=== PATIENT | female | born 2000 | race Caucasian/White ===

== ENCOUNTER 2023-12-06 10:35 | Emergency (ER) | payer BC, SELFPAY ==
[2023-12-06 10:40] VITALS: BP 141/78; PULSE 83; RESP 18; TEMP 36.9; O2SAT 98
--- NOTE | 2023-12-06 11:00 | DI.CT_ITS ---
Exam(s) CT HEAD WO EXAM: CT HEAD WO CLINICAL HISTORY: Closed head injury, Headache. TECHNIQUE: Imaging Protocol: Axial computed tomography images with coronal and sagittal reformatted images were created and reviewed COMPARISON: No exams were available for comparison FINDINGS: Ventricles and Extra axial spaces: Normal in size and morphology for the patient's age. Hemorrhage: None. Cerebral parenchyma: Normal. Midline shift: None. Brainstem/Cerebellum: Normal. Calvarium: Normal. Visualized Paranasal sinuses/Mastoids: Clear. Soft Tissues: Unremarkable. IMPRESSION: No acute intracranial process. RADIATION DOSE DELIVERED: 753.32mGy.cm Total DLP DATA REPOSITORY: All CT scans at this facility are submitted to the National Radiology Data Registry (NRDR) Dose Index Registry (DIR) with the [employer] ([employer]). RADIATION OPTIMIZATION: All CT scans at this facility use at least one of these dose optimization te chniques: automated exposure control; mA and/or kV adjustment per patient size (includes targeted exa ms where dose is matched to clinical indication); or iterative reconstruction.
--- NOTE | 2023-12-06 11:05 | W.ED.GENAD ---
Discharge Plan Disposition Patient Disposition: Home Condition: Stable Discharge Details Clinical Impression: Serum lithium level below therapeutic range, Closed head injury with loss of consciousness of unknown duration Primary Care Provider: Unknown,Unknown ED Provider: Alize Bridges Home Meds and New Rx's Prescriptions: Continued norgestimate-ethinyl estradiol [Sprintec (28)] 0.25-35 mg-mcg tablet 1 tab PO DAILY lamotrigine 25 mg tablet 25 mg PO BID Patient Comments: TAKE 1 TABLET BY MOUTH ONCE DAILY FOR 14 DAYS AND THEN TAKE 1 TABLET TWICE DAILY (28 DAY SUPPLY) lithium carbonate 300 mg capsule 300 mg PO DAILY Patient Comments: TAKE 1 CAPSULE BY MOUTH ONCE DAILY WITH THE LITHIUM 150 MG CAPSULE FOR TOTAL DOSE DOSE OF 450 MG FOR 14 DAYS lithium carbonate 150 mg capsule 150 mg PO DAILY Patient Comments: TAKE 1 CAPSULE BY MOUTH ONCE DAILY WITH THE LITHIUM 300 MG FOR A TOTAL OF 450 MG FOR 14 DAYS Discharge Instructions Instructions: Head Injury (ED) Additional Instructions: At this time you have declined mental health evaluation with [facility] services. Your lithium level is low today at 0.3. Please discuss this with your primary prescriber. Follow up with primary care provider in 3-5 days. Return to ED sooner if any worsening or concerns. Please return to the ER for any suicidal thoughts, any recurrent bipolar episodes or concerns. Referrals: [facility] [Provider Group] - Return if symptoms worsen (Call if suicidal thoughts or emergent concerns) Discharge Data Discharge Date/Time-TO BE ENTERED AT DEPARTURE: 12/06/23 13:23 HPI General Mode of arrival: ambulatory. Date/Time Provider Initiated Documentation: 12/06/23 10:47. Limitations to Documentation: no limitations. Information obtained by: patient, RN notes reviewed and old records reviewed. HPI Narrative: 23-year-old female presents to the ER with a chief complaint of headache and close head injury after beating her head against the wall in the closet last night per RN report she broke the drywall woke up this morning with a counter for it and mild bruising noted to her left frontal scalp. She reports her pain is 4 out of 10. She did take ibuprofen last night and prior to arrival at 7 AM. Denies double vision. She is also complaining of nausea and some left lateral paraspinous neck pain. She does take lithium daily and she reports that she has been taking it as prescribed. She was just recently started on Lamictal 1-1/2 weeks ago she does also take control pills. She denies at this time. She does endorse occasional alcohol, weed and she is a non-smoker. Related Data Home Medications Medication Instructions Recorded Confirmed lamotrigine 25 mg tablet 25 mg PO BID 12/06/23 12/06/23 lithium carbonate 150 mg capsule 150 mg PO DAILY 12/06/23 12/06/23 lithium carbonate 300 mg capsule 300 mg PO DAILY 12/06/23 12/06/23 norgestimate 0.25 mg-ethinyl 1 tab PO DAILY 12/06/23 12/06/23 estradiol 35 mcg tablet (Sprintec (28)) Allergies Allergy/AdvReac Type Severity Reaction Status Date / Time coconut Allergy Severe Itching Verified 12/06/23 10:44 shellfish Allergy Severe Itching Uncoded 12/06/23 10:44 General Stated Complaint: HeadInjury EVA: 3 Review of Systems All systems reviewed & are unremarkable except as noted in HPI and below Constitutional Constitutional: Reports as per HPI and Reports headache(s) ENT Ears, Nose, Mouth, and Throat: Reports headache(s) and Reports neck pain (Left paraspinous) Gastrointestinal Gastrointestinal: Reports nausea and Denies vomiting Musculoskeletal Musculoskeletal: Reports neck pain (Left paraspinous) Neurologic Neurologic: Reports as per HPI and Reports headache(s) Exam Narrative Exam Narrative: General: Well Developed, Awake and Alert, conversant. Skin: Warm and Dry HEENT: Head: No palpable deformities, Normocephalic Eyes: Pupils PERRLA, EOM's intact. No periorbital eccymosis or step off Ears: Canal patent. Tympanic membranes are clear . No dhaliwal's sign, no hemptympanum. Nose/Face: Small superficial bruising noted to the left frontal scalp, facial bones nontender to palpation and stable with manipulation. Mouth/Throat: No intraoral trauma. Teeth and mandible are intact. Neck: No midline tenderness, no step off, no deformity to palpation of C-spine. Trachea midline. Left paraspinous tenderness with palpation. Chest: No surface trauma. Nontender without crepitus or deformity. Lungs clear to ausculatation bilaterally. Heart: RRR, no rubs, murmurs or gallop. Abdomen: No abrasions, ecchymosis, or surface trauma. Nondistended. Nontender to palpation no guarding, rebound, or rigidity. Extremities: no surface trauma. Sensation intact. Peripheral pulses intact and equal. Neuro: ANO x4, GCS 15, cranial nerves II through XII intact. Motor and sensory exam nonfocal. Reflexes are symmetric. Psychiatric: See below Psych Appearance: well kempt Speech and Movement: delayed speech and slowed movement Mood: labile mood Affect: blunted Attitude: guarded Thought Process: normal Thought Content: compulsions and no homicidality Insight: insight good and fair Judgment: limited Course Vital Signs Vital signs: Vital Signs Temperature 36.9 C 12/06/23 10:40 Pulse 83 12/06/23 10:40 Respiratory Rate 18 12/06/23 10:40 Blood Pressure 141/78 H 12/06/23 10:40 Pulse Oximetry 98 12/06/23 10:40 Temperature 36.9 C 12/06/23 10:40 Temperature Source Skin 12/06/23 10:40 Pulse 83 12/06/23 10:40 Respiratory Rate 18 12/06/23 10:40 Respiratory Effort Normal, Non-Labored 12/06/23 10:42 Blood Pressure 141/78 H 12/06/23 10:40 Blood Pressure Position Sitting 12/06/23 10:40 Pulse Oximetry 98 12/06/23 10:40 Oxygen Delivery Method Room Air 12/06/23 10:40 Oxygen Flow Rate 0 12/06/23 10:40 Pain Level 4 12/06/23 10:40 Medical Decision Making 23-year-old female presents to the ER with a chief complaint of headache and close head injury after beating her head against the wall in the closet last night per RN report she broke the drywall woke up this morning with a counter for it and mild bruising noted to her left frontal scalp. She reports her pain is 4 out of 10. She did take ibuprofen last night and prior to arrival at 7 AM. Denies double vision. She is also complaining of nausea and some left lateral paraspinous neck pain. She does take lithium daily and she reports that she has been taking it as prescribed. She was just recently started on the mental 1-1/2 weeks ago she does also take control pills. She denies at this time. She does endorse occasional alcohol, weed and she is a non-smoker. On exam she has no other signs of trauma other than the bruising on her forehead, no midline C-spine tenderness crepitus or step-off, no significant hematomas or skull depressions noted. She is alert and oriented x 4, Corazon level ordered, urine test, Zofran ODT ,Tylenol and head CT. Mental health evaluation placed due to patient's history of bipolar and unclear whether patient is suicidal or not. I did inform patient of plan of care she verbalized understanding is in agreement with the plan. Working diagnosis is closed head injury, with concussion, mental illness exacerbation, differential diagnosis includes CVA, cervical strain, skull fracture. Head CT shows no acute intracranial process. Please see official results. On patient reevaluation I did discuss her low lithium level at 0.3 she reports that it has been low in the past. She is declining mental health eval at this time. She does have a appointment with her mental health provider Cristy in 2 weeks. I discussed home care for closed head injury and concussion and strict return instructions she verbalized understanding. I did instruct her to follow-up sooner regarding her lithium dosages. This text was generated using [email or web address] dictation system, please disregard any oddities of phrase or misspellings.. Patient has remained hemodynamically stable throughout the remainder of her stay. Medical Records Medical records reviewed: Yes I reviewed the patient's medical records. Imaging Data Radiologic Study: Imaging: CT Scan Radiologist's impression: EXAM: CT HEAD WO CLINICAL HISTORY: Closed head injury, Headache. TECHNIQUE: Imaging Protocol: Axial computed tomography images with coronal and sagittal reformatted images were created and reviewed COMPARISON: No exams were available for comparison FINDINGS: Ventricles and Extra axial spaces: Normal in size and morphology for the patient's age. Hemorrhage: None. Cerebral parenchyma: Normal. Midline shift: None. Brainstem/Cerebellum: Normal. Calvarium: Normal. Visualized Paranasal sinuses/Mastoids: Clear. Soft Tissues: Unremarkable. IMPRESSION: No acute intracranial process. Lab Data Lab results reviewed: Yes I reviewed the patient's lab results. Labs: Laboratory Tests Range/Units 12/06/23 11:33 Corazon (0.6-1.2) mmol/L 0.3 L Quality:SDOH Health Related Social Needs: No Data to Display PFSH All Active Problems (Updated 12/06/23 @ 12:17 by Alize Bridges NP) Closed head injury with loss of consciousness of unknown duration (Acute) Serum lithium level below therapeutic range (Acute) Social History Smoking/Tobacco Use Status: Never Smoking risk assessment performed?: Yes Alcohol Intake: current Alcohol Intake frequency: a few times a week Alcohol type: wine and hard liquor Drug use: Occasionally Substance use type: marijuana
[2023-12-06] MEDS: Acetaminophen 500 MG TAB PO (11:22)
[2023-12-06] MEDS: Ondansetron O.D.T. 4 MG TABEF PO (11:22)
[2023-12-06 12:10] LABS: Lithium 0.3 mmol/L (0.6-1.2)
--- NOTE | 2023-12-07 14:52 | NUR.NOTE ---
At the request of patient's PCP: Anais Escoto I faxed the provider note, CT report, and lab. . . Nursing Note:
== END 2023-12-06 13:23 | disposition home or self-care (01) ==
PROVIDERS: Emergency Provider Registered Nurse Emergency
DX: S00.83XA Contusion of other part of head, initial encounter (principal); R45.88 Nonsuicidal self-harm; R51.9 Headache, unspecified; F31.2 Bipolar disorder, current episode manic severe with psychotic features; R78.89 Finding of other specified substances, not normally found in blood; W22.8XXA Striking against or struck by other objects, initial encounter
CPT/HCPCS: 36415; 81025; 99283; 99284; 70450; 80178